=== PATIENT | female | born 1950 | race Caucasian/White ===

== ENCOUNTER 2021-09-30 10:54 | Outpatient (CLI) | payer OTHER ==
[~2021-09-30 10:54] MED LIST: AMBIEN10 MG; AMITRIPTYLINE H25 MG; CARAFATE1 G; CLONAZEPAM0.125 MG/T; HALDOL5 MG/ML; PRILOSEC2.5 MG; VASOTEC20 M1; ZANTAC150 M3
== END 2021-09-30 11:05 | disposition home or self-care (01) ==
LOC: TOM 10:54
DX: G93.89 Other specified disorders of brain (principal); G24.4 Idiopathic orofacial dystonia; G23.2 Striatonigral degeneration